=== PATIENT | female | born 1960 | race Caucasian/White ===

== ENCOUNTER 2019-08-31 06:12 | Outpatient (REF) | payer OTHER, SELFPAY ==
[2019-08-31 08:27] LABS: Estmated Average Glucose 128; Hemoglobin A1C 6.1 % (4.0-6.0)
[2019-08-31 11:42] LABS: Chol HDL Ratio 2.48 mg/dL (0.0-4.40); Cholesterol 186 mg/dL (0-200); Glucose 86 mg/dL (65-115); HDL Cholesterol 75 mg/dL (60-100); LDL Cholesterol Calculated 97 mg/dL (50-129); LDL HDL Ratio 1.29 RATIO (0.00-3.22); Triglycerides 70 mg/dL (0-150)
== END 2019-08-31 06:13 | disposition home or self-care (01) ==
LOC: LAB 06:12
PROVIDERS: Family Provider Family Medicine; PCP Family Medicine; Visit Provider Dermatology
DX: Z01.89 Encounter for other specified special examinations (principal)
CPT/HCPCS: 80061; 82947; 83036

== ENCOUNTER 2019-12-13 09:13 | Outpatient (CLI) | payer OTHER, SELFPAY ==
--- NOTE | 2019-12-13 09:25 | XRR_ITS ---
PROCEDURE INFORMATION: Exam: XR Left Hand Exam date and time: 12/13/2019 9:41 AM Age: 59 years old Clinical indication: Pain; Finger(s); Left; Patient HX: [place] pop in lt 4th digit 11/16/19, difficulty extending digit; Additional info: Mallet finger TECHNIQUE: Imaging protocol: XR Left hand. Views: 3 or more views. COMPARISON: No relevant prior studies available. FINDINGS: Bones/joints: Normal. Soft tissues: Normal. XR/XR hand LT min 3V* [id number] IMPRESSION: No acute findings.
== END 2019-12-13 09:14 | disposition home or self-care (01) ==
LOC: RAD 09:16
PROVIDERS: PCP Family Medicine; Visit Provider Family Medicine
DX: M20.012 Mallet finger of left finger(s) (principal)
CPT/HCPCS: 73130

== ENCOUNTER → 2020-01-02 08:18 | Outpatient (BNVA) | payer OTHER, SELFPAY | PROVIDERS: PCP Family Medicine; Visit Provider Orthopaedic Surgery | DX: S69.90XA Unspecified injury of unspecified wrist, hand and finger(s), initial encounter (principal); X58.XXXA Exposure to other specified factors, initial encounter | CPT/HCPCS: 73140; 85025; 85651; 86431 ==

== ENCOUNTER 2021-05-25 07:18 | Outpatient (CLI) | payer BC, SELFPAY ==
--- NOTE | 2021-05-25 07:34 | MM_ITS ---
WS: [id number] SCREENING DIGITAL MAMMOGRAM WITH CAD HISTORY: SCREENING COMPARISON: 04/25/2019, 07/11/2017 Bilateral CC and MLO views submitted. Computer aided detection analyzed. Breast composition: There are scattered areas of fibroglandular density. No suspicious masses, microc alcifications or architectural distortion. MM/[place] [id number] IMPRESSION: BI-RADS: 1-Negative FOLLOW UP: 1 Year Follow-up
== END 2021-05-25 07:19 | disposition home or self-care (01) ==
LOC: RADSHAW 07:25
PROVIDERS: PCP Family Medicine; Visit Provider Clinical Nurse Specialist Adult Health
DX: Z12.31 Encounter for screening mammogram for malignant neoplasm of breast (principal)
CPT/HCPCS: 77067

== ENCOUNTER 2021-08-17 07:05 | Outpatient (CLI) | payer BC, SELFPAY ==
[2021-08-17 07:28] VITALS: BMI 27.3
--- NOTE | 2021-08-17 07:31 | ECG_ITS ---
[facility] Test Date: 2021-08-17 Pat Name: Tina Gr Department: Room: Gender: Female Customer Success Specialist: Svitlana Heller : 1960 Requested By: Jasen Torres Order Number: [id number] Fernanda MD: JASEN TORRES Interpretive Statements NAME OF STUDY: LEXISCAN SESTAMIBI STRESS TEST INDICATION: Shortness of Breath, NOTE: Please note that this is the electrocardiogram portion of the Lexiscan/Sestamibi stress test. The perfusion scan will be documented separately. DATA: Baseline heart rate was 72 beats per minute. Baseline blood pressure was 107/75 millimeters of mercury. Target heart rate was 158. Maximum heart rate achieved was 96. which was 60 % of the predicted target heart rate. Maximum blood pressure was 106/77 millimeters of mercury. The reason for ending the test was completion of the protocol. The patient did not experience any symptoms. ELECTROCARDIOGRAM: BASELINE: Sinus rhythm. Normal axis. Otherwise, no ST-T changes suggestive of ischemia noted. No arrhythmia noted. EXERCISE: After Lexiscan injection, no ST-T changes suggestive of ischemic noted. No arrhythmia noted. CONCLUSION: Please note due to baseline abnormality of the EKG specificity and sensitivity of the EKG portion of LexiScan MIBI stress test will be low 1. EKG not suggestive of ischemia 2. Lexiscan injection unremarkable. 3. Perfusion scan will be documented separately. Electronically Signed On 08-19-2021 19:50:20 CONTRACT MANAGEMENT SPECIALIST by JASEN TORRES [email or web address]
--- NOTE | 2021-08-17 07:32 | NMCV_ITS ---
NM jose perf SPECT r/s* [id number] Tina Gr Age: 60 Gender: F : 1960 Exam Date: 08/17/2021 08:39 Ordering Phys: Agustin Torres MD ([email or web address]) Technologist: ESTUARDO Noble Exam Location: [facility] Indications: SHORTNESS OF BREATH STRESS TEST [facility] IMAGE PROTOCOL Rest/Stress 1 Lexiscan Day Radiopharmaceutical Dose (mCi) Administration Site Administered by Rest: Tc-99m 10.9 IV ESTUARDO Noble Sestamibi Stress:Tc-99m 32.4 IV ESTUARDO Billings Sestamibi Rest: 17-Aug-2021 60 Discovery 630 Stress: 17-Aug-2021 30 Discovery 630 0.4mg Lexiscan. Images obtained in supine and prone position. SPECT RESULTS Technical Quality: Excellent Raw Data Analysis: Normal Image Corrections: No attenuation or motion correction applied Summed Stress Score: 0 Summed Rest Score: 0 Summed Difference Score: 0 PERFUSION FINDINGS SPECT images demonstrate homogeneous tracer distribution throughout the myocardium. FUNCTIONAL RESULTS (calculated via Gated SPECT) Stress Image LV EF (%): 79 Stress EDV (mL):78 TID: 1.02 Stress ESV (mL):16 Rest Image LV EF (%): 70 FUNCTIONAL FINDINGS: There is normal left ventricular systolic function. IMPRESSIONS Myocardial perfusion imaging is normal. EKG segment was documented separately. Agustin Torres MD (Electronically Signed) Final Date: 18 August 2021 17:58 S
--- NOTE | 2021-08-17 08:45 | USCV_ITS ---
Tina Gr Age: 60 Gender: F : 1960 Exam Date: 08/17/2021 07:38 Ordering Phys: Agustin Torres MD ([email or web address]) Technologist: GABRIELLA Exam Location: [facility] Indication: Chest pain BP: / HR: 69 Rhythm: Sinus Technical Quality: Adequate MEASUREMENTS (Male / Female) Normal Values 2D ECHO LV Diastolic Diameter PLAX 3.1 cm 4.2 - 5.9 / 3.9 - 5.3 cm LV Systolic Diameter PLAX 1.7 cm IVS Diastolic Thickness 1.0 cm 0.6 - 1.0 / 0.6 - 0.9 cm IVS Systolic Thickness 2.0 cm LVPW Diastolic Thickness 1.4 cm 0.6 - 1.0 / 0.6 - 0.9 cm LVPW Systolic Thickness 1.5 cm LVOT Diameter 2.1 cm LV Ejection Fraction 2D Teich 77.3 % LV Ejection Fraction MOD 2C 72.2 % LV Ejection Fraction 2C AL 72.9 % LA Diameter 4.5 cm LA Width 3.8 cm LA Height 5.0 cm RA Width 3.8 cm RA Height 3.9 cm Aorta at Sinotubular Diameter 2.7 cm M-MODE Aortic Annulus Diameter 2.7 cm LA Ao Ratio MM 1.6 MV E Point Septal Separation 1.2 cm DOPPLER AV Peak Velocity 117.0 cm/s LVOT Peak Velocity 120.0 cm/s AV Area Cont Eq vti 3.2 cm squared AV Area Cont Eq pk 3.5 cm squared MV Area PHT 4.6 cm squared Mitral E to A Ratio 1.1 MV E' Velocity 49.5 cm/s Mitral E to MV E' Ratio 8.4 Mitral E to LV E' Lateral Ratio 9.4 Mitral E to LV E' Septal Ratio 7.7 TR Peak Velocity 193.7 cm/s TR Peak Gradient 15.0 mmHg TV Peak E Velocity 76.0 cm/s Right Atrial Pressure 3.0 mmHg Pulmonary Artery Systolic Pressu 18.0 mmHg FINDINGS Left Ventricle Normal left ventricular size, systolic function and wall thickness, with no regional wall motion abnormalities. Left ventricular ejection fraction is estimated at 65 %. Normal diastolic function. Right Ventricle Normal right ventricular size and systolic function. Right ventricular systolic pressure 22 mmHg. Right Atrium Normal right atrial size. Right atrial pressure estimated at 3 mmHg. Left Atrium Normal left atrial size. Mitral Valve Structurally normal mitral valve. No mitral valve stenosis. Trace mitral valve regurgitation. Aortic Valve Aortic valve not well visualized. No aortic valve stenosis. No aortic valve regurgitation. Tricuspid Valve Structurally normal tricuspid valve. No tricuspid valve stenosis. Trace tricuspid valve regurgitation. Pulmonic Valve Pulmonic valve not well visualized. No pulmonary valve stenosis. No significant pulmonary valve regurgitation. Pericardium No pericardial effusion. Aorta Normal-sized aortic root. Normal-sized inferior vena cava with normal respiratory variation. CONCLUSIONS 1. Normal left ventricular size, systolic function and wall thickness, with no regional wall motion abnormalities. Left ventricular ejection fraction is estimated at 65 %. Normal diastolic function. 2. Normal right ventricular size and systolic function. 3. Normal pulmonary artery pressure. 4. No significant valvular normality. 5. No prior similar studies to compare. Nohelia Camacho MD (Electronically Signed) Final Date: 18 August 2021 17:50 S
[2021-08-17] MEDS: regadenoson 0.4 Mg/5 ml Syringe IVP (09:27)
[2021-08-17 09:39] VITALS: BP 114/71; PULSE 85
== END 2021-08-17 07:06 | disposition home or self-care (01) ==
LOC: CDL 07:07
PROVIDERS: PCP Family Medicine; Visit Provider Internal Medicine Cardiovascular Disease
DX: R06.02 Shortness of breath (principal); R07.9 Chest pain, unspecified
CPT/HCPCS: 78452; 93017; 93306; A9500; J2785

== ENCOUNTER → 2022-02-22 08:03 | Outpatient (BNVA) | payer BC, SELFPAY | PROVIDERS: PCP Family Medicine; Visit Provider Family Medicine | DX: Z00.00 Encounter for general adult medical examination without abnormal findings (principal); E78.5 Hyperlipidemia, unspecified; I10 Essential (primary) hypertension; R06.02 Shortness of breath; R07.9 Chest pain, unspecified; M20.012 Mallet finger of left finger(s) | CPT/HCPCS: 80053; 80061 ==

== ENCOUNTER 2022-06-14 07:35 | Outpatient (CLI) | payer BC, SELFPAY ==
--- NOTE | 2022-06-14 07:41 | MM_ITS ---
WS: [id number] SCREENING DIGITAL TOMOSYNTHESIS MAMMOGRAM WITH CAD HISTORY: SCREENING COMPARISON: 05/25/2021, 2018 Bilateral CC and MLO with tomosynthesis views submitted. Synthetic mammography reviewed. Computer aid ed detection analyzed. Breast composition: There are scattered areas of fibroglandular density. No suspicious masses, microc alcifications or architectural distortion. MM/[place] [id number] IMPRESSION: BI-RADS: 1-Negative FOLLOW UP: 1 Year Follow-up
== END 2022-06-14 07:36 | disposition home or self-care (01) ==
PROVIDERS: PCP Family Medicine; Visit Provider Family Medicine
DX: Z12.31 Encounter for screening mammogram for malignant neoplasm of breast (principal)
CPT/HCPCS: 77063; 77067

== ENCOUNTER 2022-08-02 09:45 | Outpatient (CLI) | payer OTHER, SELFPAY ==
--- NOTE | 2022-08-02 09:47 | XR_ITS ---
WS: [id number] XR shoulder RT min 2V* [id number] REASON FOR EXAM: shoulder pain FINDINGS: No fracture or focal bone lesion. The acromioclavicular joint space relatively well preserved with marginal sclerosis and osteophytosis . Mild narrowing of the glenohumeral joint with moderate osteophytosis of the humeral head. Mild subcho ndral sclerosis and cystic change in the greater tuberosity of the humerus. No soft tissue abnormality. 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 Mild rotator cuff tendon arthropathy.
== END 2022-08-02 09:46 | disposition home or self-care (01) ==
PROVIDERS: PCP Family Medicine; Visit Provider Clinical Nurse Specialist Adult Health
DX: M19.011 Primary osteoarthritis, right shoulder (principal)
CPT/HCPCS: 73030

== ENCOUNTER 2022-09-13 06:59 | Outpatient (CLI) | payer OTHER, SELFPAY ==
--- NOTE | 2022-09-13 07:15 | MR_ITS ---
WS: [id number] MRI RIGHT SHOULDER HISTORY: rotator cuff tendon arthropathy, general progressive RIGHT shoulder pain. COMPARISON: Radiograph 08/02/2022 TECHNIQUE: Multiplanar sequences of the shoulder joint are submitted. Severe AC joint arthritis. Bone and soft tissue hypertrophy. Increased T2 signal through the AC ligam ent. 5 mm osteophyte from the distal clavicle contacting and displacing the supraspinatus tendon and muscle. Additional 5 mm osteophyte along the distal undersurface of the acromion with moderate subacr omial impingement. Very minimal fluid in the subacromial and subdeltoid bursa. No os acromion. Biceps tendon is dislocated. There is no tendon in the bicipital groove. Increase fluid in the biceps tendo n sheath. Mildly high riding humeral head with moderate narrowing of the glenohumeral joint. Supraspinatus tend on is being deformed by degenerative changes at the before meals and glenohumeral joint. There is inc reased signal in the distal supraspinatus along the bursal surface. The tendon is abnormal but no ful l-thickness tear with retraction. There is fraying of the articular surfaces which is advanced. Infra spinatus tendon is normal. Subscapularis tendon is retracted and wavy. There is a large amount of flu id surrounding the subscapularis tendon. Increased fluid in the axillary pouch. Mild degenerative edilberto nges within the labrum. MR/MR shoulder RT wo con* [id number] IMPRESSION: 1. Severe AC joint arthritis with osteophyte encroachment upon the supraspinat us tendon and muscle. 2. Deformity and displacement of the supraspinatus tendon by degenerative lazo ges at the AC joint. Small bursal surface tear distal supraspinatus tendon with additional advanced fraying. 3. Dislocated biceps tendon with tenosynovitis. 4. Suspect complete tear distal subscapularis tendon with additional tendinopa thy. 5. Glenohumeral joint effusion.
== END 2022-09-13 07:00 | disposition home or self-care (01) ==
PROVIDERS: PCP Family Medicine; Visit Provider Clinical Nurse Specialist Adult Health
DX: M13.811 Other specified arthritis, right shoulder; M25.411 Effusion, right shoulder
CPT/HCPCS: 73221

== ENCOUNTER → 2023-03-02 08:46 | Outpatient (BNVA) | payer OTHER, SELFPAY | PROVIDERS: PCP Family Medicine; Visit Provider Clinical Nurse Specialist Adult Health | DX: E78.5 Hyperlipidemia, unspecified (principal); M25.512 Pain in left shoulder | CPT/HCPCS: 80061 ==

== ENCOUNTER → 2024-05-28 09:22 | Outpatient (BNVA) | payer OTHER, SELFPAY | PROVIDERS: PCP Family Medicine; Visit Provider Clinical Nurse Specialist Adult Health | DX: I10 Essential (primary) hypertension (principal); M70.72 Other bursitis of hip, left hip; M25.552 Pain in left hip | CPT/HCPCS: 80053; 85025; 85651; 86140 ==

== ENCOUNTER → 2025-01-15 10:15 | Outpatient (BNVA) | payer OTHER, SELFPAY | PROVIDERS: PCP Family Medicine; Visit Provider Family Medicine | DX: Z00.00 Encounter for general adult medical examination without abnormal findings (principal); S82.891A Other fracture of right lower leg, initial encounter for closed fracture; X58.XXXA Exposure to other specified factors, initial encounter | CPT/HCPCS: 80053; 80061; 82306 ==

== ENCOUNTER 2025-02-11 12:14 | Outpatient (CLI) | payer MEDICARE, SELFPAY ==
--- NOTE | 2025-02-11 12:40 | MM_ITS ---
WS: [email or web address] BILATERAL 3D TOMOSYNTHESIS DIGITAL SCREENING MAMMOGRAPHY WITH CAD CLINICAL INFORMATION: Z12.39 - Encounter for other screening for malignant neop... HISTORY: Screening mammogram. No current complaints. COMPARISON: 2021 TECHNIQUE: Bilateral CC and MLO views. FINDINGS: The breasts are composed of heterogeneous fibroglandular density tissue, which can limit the detection of small underlying mass lesions. No suspicious mass, asymmetry, calcifications, or architectural distortion. No evidence of malignancy. MM/MM [facility] tomosynthesis [id number] IMPRESSION: DENSITY: The breasts are heterogeneously dense, which may obscure small masses. BI-RADS: 1 - Negative FOLLOW UP: 1 Year Follow-up Recommend return to annual screening mammography.
--- NOTE | 2025-02-11 13:00 | XR_ITS ---
WS: [email or web address] SCREENING DEXA SCAN SPHARES CLINICAL INFORMATION: S82.331A - Other fracture of right lower leg, initial enc... COMPARISON: None. FINDINGS: The L1-L4 bone mineral density measures 0.988 g/cm2. This corresponds to a T score score of -1.6 and Z score of -0.4. Left femoral neck bone mineral density measures 0.815 g/cm2. This corresponds to a T score of -1.5 and Z score of -0.6. Right femoral neck bone mineral density measures 0.782 g/cm2. This corresponds to a T score -1.8of and Z score of -0.8. Mean femoral neck bone mineral density measures 0.799 g/cm2. This corresponds to a T score of -1.7 and Z score of -0.7. XR/XR DEXA axial skeleton* [id number] IMPRESSION: Osteopenia lumbar spine. Osteopenia femoral necks. Patient's FRAX calculated 10 year probability for major osteoporotic fracture i s 18.2% and osteoporotic hip fracture is 3.0%.
== END 2025-02-11 12:15 | disposition home or self-care (01) ==
LOC: RAD 12:18
PROVIDERS: PCP Family Medicine; Visit Provider Family Medicine
DX: Z12.31 Encounter for screening mammogram for malignant neoplasm of breast (principal); S82.891A Other fracture of right lower leg, initial encounter for closed fracture; R92.333 Mammographic heterogeneous density, bilateral breasts; M85.88 Other specified disorders of bone density and structure, other site; M85.852 Other specified disorders of bone density and structure, left thigh; M85.851 Other specified disorders of bone density and structure, right thigh; X58.XXXA Exposure to other specified factors, initial encounter
CPT/HCPCS: 77063; 77067; 77080